=== PATIENT | female | born 1975 | race Caucasian/White ===

== ENCOUNTER 2016-08-29 14:09 | Emergency (ER) | payer OTHER ==
[~2016-08-29] VITALS: Ht 154.9 cm; Wt 64.4 kg
[2016-08-29 14:16] VITALS: TEMP 37; Ht 154.9 cm; Wt 64.4 kg
--- NOTE | 2016-08-29 14:44 | EMERGENCY ROOM VISIT NOTE ---
History Report prepared by Ernesto: Hakan Herman Under the Supervision of: Dr. Jens Pablo M.D. First contact with patient: 14:32 Chief Complaint: VAGINAL BLEEDING Stated Complaint: AND BLEEDING, 7 WEEKS History of Present Illness The patient is a 41 year old female that is 7 weeks who presents to the Emergency Room with complaints of scant vaginal bleeding that started this morning. She has not been saturating pads. The patient also complains of some abdominal cramping. This is the patient's first , and she has never miscarried or aborted. Her LNMP was on 07/08. The patient has not had a confirmatory ultrasound yet. 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 The patient has started taking vitamins. She is currently on Amoxicillin for a sinus infection. The patient still has her appendix and gallbladder. She has not had any abdominal surgeries. Source of History: patient Onset: this morning Position: other (vaginal) Symptom Intensity: scant Quality: other (vaginal bleeding) Associated Symptoms: + abdominal pain Review of Systems See HPI for pertinent positives & negatives. A total of 10 systems reviewed and were otherwise negative. Past Medical & Surgical Medical Problems: (1) No known health problems Family History Cancer Diabetes mellitus Heart disease Social History Smoking Status: Never Smoker Occupation Status: employed Current/Historical Medications Scheduled Amoxicillin (Amoxil), 1 CAP PO BID Multivit/Min/Iron/Fol Ac/Pren ( Vitamin), 1 TAB PO DAILY Physical Exam Vital Signs Date Time Temp Pulse Resp B/P Pulse Ox O2 Delivery O2 Flow Rate FiO2 08/29/16 17:17 82 18 139/83 98 08/29/16 16:55 91 08/29/16 16:03 88 18 123/73 99 Room Air 08/29/16 14:16 37.0 101 18 128/78 99 Room Air Physical Exam GENERAL: Patient is a healthy-appearing well-nourished HEAD: Normocephalic atraumatic EYES: Ocular movements intact pupils equal and react to light OROPHARYNX mucous membranes are moist no exudates present no erythema or edema present NECK: Supple no nuchal rigidity CHEST: Good equal expansion LUNGS: Clear and equal to auscultation CARDIAC: Normal S1 and S2 ABDOMEN: Soft nontender no guarding BACK: No CVA tenderness EXTREMITIES: No pain upon palpation normal muscle strength in all groups no clubbing cyanosis or edema NEURO: Patient is following commands is answering questions appropriately. Alert and oriented x3 Cranial Nerves 2-12 grossly intact Medical Decision & Procedures ER Provider Diagnostic Interpretation: US results as stated below per my review and radiologist interpretation: <14 WKS SINGLE CLINICAL HISTORY: , vaginal bleeding. COMPARISON STUDY: No previous studies for comparison. FINDINGS: A single alive intrauterine gestation was visualized. The crown-rump rump length measured 19 mm corresponding to an estimated postmenstrual age of 8 weeks and 3 days. The heart rate is 175. There is a tiny subchorionic hematoma. A normal-appearing yolk sac was visualized. Several uterine fibroids are visualized. The right ovary was nonvisualized. The left ovary contained a 19 mm cyst, likely representing a corpus luteum. IMPRESSION: 1. Single alive intrauterine gestation. The estimated postmenstrual age is 8 weeks and 3 days 2. Tiny subchorionic hematoma 3. Suspected uterine fibroids Electronically signed by: Aids Avitia M.D. 08/29/2016 4:54 PM Dictated Date/Time: 08/29/2016 4:52 PM Laboratory Results 08/29/16 14:56 Red Blood Count 4.18, Mean Corpuscular Volume 88.0, Mean Corpuscular Hemoglobin 30.9, Mean Corpuscular Hemoglobin Concent 35.1, Mean Platelet Volume 8.9, Neutrophils (%) (Auto) 77.4, Lymphocytes (%) (Auto) 15.3, Monocytes (%) (Auto) 6.3, Eosinophils (%) (Auto) 0.4, Basophils (%) (Auto) 0.2, Neutrophils # (Auto) 8.79, Lymphocytes # (Auto) 1.73, Monocytes # (Auto) 0.71, Eosinophils # (Auto) 0.04, Basophils # (Auto) 0.02 08/29/16 14:56 Test 08/29/16 14:56 08/29/16 16:50 White Blood Count 11.33 K/uL (4.8-10.8) Red Blood Count 4.18 M/uL (4.2-5.4) Hemoglobin 12.9 g/dL (12.0-16.0) Hematocrit 36.8 % (37-47) Mean Corpuscular Volume 88.0 fL (80-100) Mean Corpuscular Hemoglobin 30.9 pg (25-34) Mean Corpuscular Hemoglobin Concent 35.1 g/dl (32-36) Platelet Count 295 K/uL (130-400) Mean Platelet Volume 8.9 fL (7.4-10.4) Neutrophils (%) (Auto) 77.4 % Lymphocytes (%) (Auto) 15.3 % Monocytes (%) (Auto) 6.3 % Eosinophils (%) (Auto) 0.4 % Basophils (%) (Auto) 0.2 % Neutrophils # (Auto) 8.79 K/uL (1.4-6.5) Lymphocytes # (Auto) 1.73 K/uL (1.2-3.4) Monocytes # (Auto) 0.71 K/uL (0.11-0.59) Eosinophils # (Auto) 0.04 K/uL (0-0.5) Basophils # (Auto) 0.02 K/uL (0-0.2) RDW Standard Deviation 39.7 fL (36.4-46.3) RDW Coefficient of Variation 12.3 % (11.5-14.5) Immature Granulocyte % (Auto) 0.4 % Immature Granulocyte # (Auto) 0.04 K/uL (0.00-0.02) Prothrombin Time 10.0 SECONDS (9.0-12.0) Prothromb Time International Ratio 0.9 (0.9-1.1) Activated Partial Thromboplast Time 25.3 SECONDS (21.0-31.0) Partial Thromboplastin Ratio 1.0 Anion Gap 11.0 mmol/L (3-11) Est Creatinine Clear Calc Drug Dose 94.9 ml/min Estimated GFR () 126.5 Estimated GFR (Non- 109.2 BUN/Creatinine Ratio 12.7 (10-20) Calcium Level 8.5 mg/dl (8.5-10.1) Total Bilirubin 0.2 mg/dl (0.2-1) Aspartate Amino Transf (AST/SGOT) 12 U/L (15-37) Alanine Aminotransferase (ALT/SGPT) 25 U/L (12-78) Alkaline Phosphatase 46 U/L (45-117) Total Protein 7.4 gm/dl (6.4-8.2) Albumin 3.5 gm/dl (3.4-5.0) Globulin 3.9 gm/dl (2.5-4.0) Albumin/Globulin Ratio 0.9 (0.9-2) Human Chorionic Gonadotropin, Quant [id number] mIU/mL Urine Color YELLOW Urine Appearance CLEAR (CLEAR) Urine pH 7.0 (4.5-7.5) Urine Specific [place] 1.013 (1.000-1.030) Urine Protein NEG (NEG) Urine Glucose (UA) NEG (NEG) Urine Ketones NEG (NEG) Urine Occult Blood 2+ (NEG) Urine Nitrite NEG (NEG) Urine Bilirubin NEG (NEG) Urine Urobilinogen NEG (NEG) Urine Leukocyte Esterase NEG (NEG) Urine WBC (Auto) 0 /hpf (0-5) Urine RBC (Auto) 0-4 /hpf (0-4) Urine Hyaline Casts (Auto) 1-5 /lpf (0-5) Urine Epithelial Cells (Auto) 10-20 /lpf (0-5) Urine Bacteria (Auto) NEG (NEG) Urine Yeast (Auto) (NONE PRSENT) Urine Test POS (NEG) Labs reviewed by ED physician. ED Course 1437: Past medical records reviewed. The patient was evaluated in room B8. A complete history and physical examination was performed. 1543: Checked on the patient. She is doing well. 1705: Reassessed the patient.. I discussed results and treatment plan with the patient. She verbalizes agreement and understanding. The patient is ready for discharge. Medical Decision Differential diagnosis: Etiologies such as ectopic , dysfunction uterine bleeding, bleeding dyscrasia, trauma, infection, as well as others were entertained. This is a 41-year-old female who presents emergency department complaining of vaginal bleeding. Patient reports the bleeding has not been having however she has been having spotting. She believes that she is 7 weeks and this is her first . She has a benign abdominal examination. Serial abdominal examinations were performed on the patient in the emergency department and at no time did she exhibit abdominal tenderness or surgical abdomen. The patient's beta hCG level is high at 160,000. Her ultrasound appears consistent with a intrauterine gestation. The patient then had a repeat abdominal examination which did not show again any abdominal tenderness. The patient also has a very small subchorionic hemorrhage. I do believe based on the patient's laboratory work I will note that she is blood type positive that she can be safely discharged home. I did recommend bed rest while the patient was expressing vaginal bleeding. She does have a follow-up examination with OB on Monday and is taking vitamins. Patient was in agreement with the treatment plan. Impression Primary Impression: 8 weeks gestation of Additional Impression: Subchorionic hematoma in first trimester Scribe Attestation The scribe's documentation has been prepared under my direction and personally reviewed by me in its entirety. I confirm that the note above accurately reflects all work, treatment, procedures, and medical decision making performed by me. Departure Information Dispostion Home / Self-Care Referrals No Doctor, Assigned (PCP) Forms HOME CARE DOCUMENTATION FORM, IMPORTANT VISIT INFORMATION, WORK / SCHOOL INSTRUCTIONS Patient Instructions Bleeding Early Preg, My [facility], Preg 1st Trimester Additional Instructions Bed rest until follow up with OB Follow up on monday You have been examined and treated today on an emergency basis only. This is not a substitute for, or an effort to provide, complete comprehensive medical care. It is impossible to recognize and treat all injuries or illnesses in a single emergency department visit. It is therefore important that you follow up closely with your PCP. Call as soon as possible for an appointment. Thank you for your time and consideration. I look forward to speaking with you again soon. Please don't hesitate to call us if you have any questions. Problem Qualifiers
[2016-08-29] MEDS ORDERED: PRENTAB26 PO (14:49)
[2016-08-29] MEDS ORDERED: AMOX500C3 PO (14:49)
[2016-08-29 15:10] LABS: BASO % 0.2 %; BASO ABS # 0.02 K/uL (0-0.2); COMPLETE YES; EOS % 0.4 %; HEMATOCRIT 36.8 % (37-47); IG% 0.4 %; LYMPH % 15.3 %; LYMPH ABS # 1.73 K/uL (1.2-3.4); MEAN CORPUSCULAR HEMOGLOBIN 30.9 pg (25-34); MEAN CORPUSCULAR HGB CONC 35.1 g/dl (32-36); MEAN PLATELET VOLUME 8.9 fL (7.4-10.4); MONO % 6.3 %; NEUT % 77.4 %; PLATELET COUNT 295 K/uL (130-400); RED BLOOD COUNT 4.18 M/uL (4.2-5.4); WHITE BLOOD COUNT 11.33 K/uL (4.8-10.8)
[2016-08-29 15:15] LABS: INR 0.9 (0.9-1.1)
[2016-08-29 15:31] LABS: BUN/CREATININE RATIO 12.7 (10-20); CALCIUM 8.5 mg/dl (8.5-10.1); CREATININE 0.67 mg/dl (0.60-1.20); POTASSIUM 3.3 mmol/L (3.5-5.1)
[2016-08-29 15:33] LABS: ALB/GLOB RATIO 0.9 (0.9-2)
--- NOTE | 2016-08-29 16:55 | DIAGNOSTIC IMAGING REPORT ---
<14 WKS SINGLE CLINICAL HISTORY: , vaginal bleeding. COMPARISON STUDY: No previous studies for comparison. FINDINGS: A single alive intrauterine gestation was visualized. The crown-rump rump length measured 19 mm corresponding to an estimated postmenstrual age of 8 weeks and 3 days. The heart rate is 175. There is a tiny subchorionic hematoma. A normal-appearing yolk sac was visualized. Several uterine fibroids are visualized. The right ovary was nonvisualized. The left ovary contained a 19 mm cyst, likely representing a corpus luteum. IMPRESSION: 1. Single alive intrauterine gestation. The estimated postmenstrual age is 8 weeks and 3 days 2. Tiny subchorionic hematoma 3. Suspected uterine fibroids Electronically signed by: Adis Avitia M.D. 08/29/2016 4:54 PM Dictated Date/Time: 08/29/2016 4:52 PM
[2016-08-29 17:12] LABS: URINE APPEARANCE CLEAR (CLEAR); URINE BILIRUBIN NEG (NEG); URINE COLOR YELLOW; URINE NITRITE NEG (NEG); URINE SPECIFIC GRAVITY 1.013 (1.000-1.030); UROBILINOGEN NEG (NEG)
[2016-08-29 17:15] LABS: MANUAL MICROSCOPIC REQUIRED? NO; REVIEW REQ? YES
[2016-08-29 17:17] VITALS: BP 139/83; PULSE 82; O2SAT 98
== END 2016-08-29 17:19 | disposition home or self-care (01) ==
LOC: C.EDB 14:11
DX: O20.8 Other hemorrhage in early pregnancy (principal); Z3A.08 8 weeks gestation of pregnancy

== ENCOUNTER → 2016-08-31 | Outpatient (CLI) | payer OTHER ==
[~2016-08-31] MED LIST: AMOX500C3 PO; PRENTAB26 PO
[2016-08-31 12:22] LABS: URINE APPEARANCE CLEAR (CLEAR); URINE BILIRUBIN NEG (NEG); URINE COLOR YELLOW; URINE NITRITE NEG (NEG); URINE SPECIFIC GRAVITY 1.022 (1.000-1.030); UROBILINOGEN NEG (NEG)
[2016-08-31 12:28] LABS: MANUAL MICROSCOPIC REQUIRED? NO; REVIEW REQ? YES
[2016-08-31 12:51] LABS: URINE MUCUS PRESENT (NONE PRSENT)
== END | disposition home or self-care (01) ==
LOC: C.LABSPEC 11:36
PROVIDERS: ATTEND Obstetrics & Gynecology
DX: O09.519 Supervision of elderly primigravida, unspecified trimester (principal)

== ENCOUNTER → 2016-09-06 | Outpatient (CLI) | payer OTHER | END | disposition home or self-care (01) | LOC: C.PAPS 08:21 | PROVIDERS: ATTEND Obstetrics & Gynecology | DX: Z12.4 Encounter for screening for malignant neoplasm of cervix (principal) ==

== ENCOUNTER → 2016-09-06 | Outpatient (CLI) | payer OTHER ==
[2016-09-06 10:13] LABS: BASO % 0.2 %; BASO ABS # 0.02 K/uL (0-0.2); COMPLETE YES; EOS % 0.3 %; HEMATOCRIT 35.8 % (37-47); IG% 0.3 %; LYMPH % 12.4 %; LYMPH ABS # 1.29 K/uL (1.2-3.4); MEAN CELL VOLUME 87.7 fL (80-100); MEAN CORPUSCULAR HEMOGLOBIN 30.9 pg (25-34); MEAN CORPUSCULAR HGB CONC 35.2 g/dl (32-36); MEAN PLATELET VOLUME 9.3 fL (7.4-10.4); MONO % 6.9 %; NEUT % 79.9 %; PLATELET COUNT 377 K/uL (130-400); RED BLOOD COUNT 4.08 M/uL (4.2-5.4); WHITE BLOOD COUNT 10.41 K/uL (4.8-10.8)
== END | disposition home or self-care (01) ==
LOC: C.LAB1850 09:11
PROVIDERS: ATTEND Obstetrics & Gynecology
DX: O09.519 Supervision of elderly primigravida, unspecified trimester (principal)

== ENCOUNTER → 2016-09-06 | Outpatient (CLI) | payer OTHER ==
[2016-09-09 00:16] LABS: CHLAMYDIA TRACH RNA*** NOT DETECTED (NOT DETECTED); GC (NEIS GONORRHOEAE)RNA** NOT DETECTED (NOT DETECTED)
== END | disposition home or self-care (01) ==
LOC: C.LABSPEC 17:40
PROVIDERS: ATTEND Obstetrics & Gynecology
DX: O09.519 Supervision of elderly primigravida, unspecified trimester (principal)

== ENCOUNTER → 2016-10-26 | Outpatient (CLI) | payer OTHER ==
[2016-10-27 09:10] LABS: GTGD 50 Grams
== END | disposition home or self-care (01) ==
LOC: C.LAB1850 16:37
PROVIDERS: ATTEND Obstetrics & Gynecology
DX: O09.519 Supervision of elderly primigravida, unspecified trimester (principal); Z3A.00 Weeks of gestation of pregnancy not specified

== ENCOUNTER → 2017-01-18 | Outpatient (CLI) | payer BC ==
[2017-01-18 16:35] LABS: HEMATOCRIT 35.5 % (37-47)
[2017-01-18 16:43] LABS: URINE APPEARANCE CLEAR (CLEAR); URINE BILIRUBIN NEG (NEG); URINE COLOR YELLOW; URINE EPITHELIAL CELL AUTO 20-30 /lpf (0-5); URINE NITRITE NEG (NEG); URINE SPECIFIC GRAVITY 1.033 (1.000-1.030); UROBILINOGEN NEG (NEG)
[2017-01-18 16:48] LABS: MANUAL MICROSCOPIC REQUIRED? NO; REVIEW REQ? YES
[2017-01-18 17:02] LABS: URINE MUCUS PRESENT (NONE PRSENT)
[2017-01-18 17:19] LABS: GTGD 50 Grams
== END | disposition home or self-care (01) ==
LOC: C.LAB1850 15:25
PROVIDERS: ATTEND Obstetrics & Gynecology
DX: O09.512 Supervision of elderly primigravida, second trimester (principal); Z3A.00 Weeks of gestation of pregnancy not specified

== ENCOUNTER → 2017-03-13 | Outpatient (CLI) | payer BC | END | disposition home or self-care (01) | LOC: C.LABSPEC 14:02 | PROVIDERS: ATTEND Obstetrics & Gynecology | DX: O09.513 Supervision of elderly primigravida, third trimester (principal) ==

== ENCOUNTER 2017-04-06 07:24 | Inpatient (IN) | payer BC ==
[~2017-04-06] VITALS: Ht 154.9 cm; Wt 68.2 kg
[2017-04-06] MEDS ORDERED: LACTATED RINGER'S 1000ML 1,000 ML IV PRN (08:37)
[2017-04-06] MEDS ORDERED: LACTATED RINGER'S 1000ML 500 ML IV PRN ×2 (08:37→10:35)
[2017-04-06] MEDS ORDERED: LACTATED RINGER'S 1000ML 1,000 ML IV SCH (08:37)
[2017-04-06] MEDS ORDERED: OXYTOCIN 30 UNITS/500ML NSS IV PRN ×2 (08:45→19:00)
[2017-04-06] MEDS ORDERED: PENICILLIN G POTASSIUM IV 6 MU in DEXTROSE 5% 250ML 250 ML IV SCH (09:00)
[2017-04-06 09:38] LABS: HEMATOCRIT 37.2 % (37-47); MEAN CELL VOLUME 91.6 fL (80-100); MEAN CORPUSCULAR HEMOGLOBIN 30.8 pg (25-34); MEAN CORPUSCULAR HGB CONC 33.6 g/dl (32-36); MEAN PLATELET VOLUME 9.5 fL (7.4-10.4); PLATELET COUNT 276 K/uL (130-400); RED BLOOD COUNT 4.06 M/uL (4.2-5.4); WHITE BLOOD COUNT 15.53 K/uL (4.8-10.8)
[2017-04-06] MEDS ORDERED: FENTANYL 2MCG/ML ROPIV 1.25MG/ML 100ML BAG EPI ONE (10:00)
[2017-04-06] MEDS ORDERED: BUPIVACAINE 0.25% 30 ML VIAL ONE (10:00)
[2017-04-06] MEDS ORDERED: EpHEDrine SULFATE INJ 50 MG/ML AMP ONE (10:00)
[2017-04-06] MEDS ORDERED: FENTANYL CITRATE INJ 50 MCG/1 ML 2 ML VIAL ONE (10:00)
[2017-04-06] MEDS ORDERED: NALOXONE HCL INJ 0.4 MG/1 ML VIAL/CARP IV PRN (10:45)
[2017-04-06] MEDS ORDERED: EpHEDrine SULFATE INJ 50 MG/ML AMP IV PRN (10:45)
[2017-04-06] MEDS ORDERED: FENTANYL 2MCG/ML ROPIV 1.25MG/ML 100ML BAG EPI PRN (10:45)
[2017-04-06 11:07] VITALS: Ht 154.9 cm; Wt 68.2 kg
[2017-04-06] MEDS: PENICILLIN G POTASSIUM IV 3 MU in DEXTROSE 5% 100ML 100 ML IV PRN ×2 (13:41→17:32)
[2017-04-06] MEDS ORDERED: DIPHTHERIA/TETANUS/PERTUSSIS 0.5 ML SYR/VIAL IM. ONE (19:00)
[2017-04-06] MEDS ORDERED: LANOLIN OINT EXT PRN ×2 (19:00)
[2017-04-06] MEDS ORDERED: BENZOCAINE 20% AER SPR 82.5 GM CAN EXT PRN (19:00)
[2017-04-06] MEDS ORDERED: SUPERCREAM 0.870 % 15GM JAR EXT PRN (19:00)
[2017-04-06] MEDS ORDERED: ACETAMINOPHEN/CODEINE 300/30MG TAB PO PRN ×2 (19:00)
[2017-04-06] MEDS ORDERED: HYDROCORTISONE ACETATE 25 MG SUPP PR PRN (19:00)
--- NOTE | 2017-04-06 19:08 | Anesthesia Procedure Note ---
Anesthesia Epidural Removal Nt Date & Time Apr 06, 2017 at 19:07 Notes Mental Status: alert / awake / arousable, participated in evaluation Nausea / Vomiting: adequately controlled Pain: adequately controlled Airway Patency, RR, SpO2: stable & adequate BP & HR: stable & adequate Hydration State: stable & adequate Neuraxial Anesthesia: was administered Anesthetic Complications: no major complications apparent, pt satisfied with anesthetic care Epidural: removed without complications, with tip intact
[2017-04-06] MEDS: IBUPROFEN 600 MG TAB PO PRN (19:36)
[2017-04-06 21:10] VITALS: BP 113/76; PULSE 104; PULSE 115; TEMP 36.4; O2SAT 97
[2017-04-06] MEDS: DOCUSATE SODIUM 100 MG CAP PO SCH (22:06)
[2017-04-06 23:15] VITALS: BP 123/78; PULSE 112; TEMP 36.5; O2SAT 98
--- NOTE | 2017-04-07 00:43 | DELIVERY SUMMARY ---
DATE OF OPERATION: 04/06/2017 FINDINGS: Viable female with Apgars of 5 and 8 delivering over a midline second degree laceration with bilateral second degree periurethral tear. Cord gases and cord blood samples were obtained. Placenta delivered spontaneously. Laceration was repaired with 4-0 and 2-0 Vicryl. Estimated blood loss 300 mL. LABOR NOTE: The patient is a 42-year-old 1, para 0 with an EDC of 10 April at 39+ weeks of gestational age, who was admitted with spontaneous rupture of membranes. The patient states membranes ruptured approximately 0700 hours on day of delivery. She described the fluid was clear with no real contraction. The patient has been followed for advanced maternal age during this . She had a first trimester Cell-Free DNA screening, which was negative. She was followed per protocol with testing, which was reassuring. echocardiogram and growth scans were within normal limits. LABORATORY DATA: For the , show blood type of A positive, antibody negative, rubella immune, hepatitis B negative. She had a negative Cell-Free DNA, normal 1-hour Glucola x2 and a positive third trimester beta strep culture. Upon admission, the patient was 3 cm dilated, 90% effaced, -2 station, and grossly ruptured. heart rate tracing was category 1. With a positive GBS status, she received penicillin 6 million unit loading dose, and 3 million units every 4 hours until delivery. Pitocin was initiated per induction protocol because of the ruptured membranes and positive GBS. The patient began to contract in a regular fashion. Anesthesia was consulted and an epidural was placed for pain control. The patient progressed to 5 cm dilated, 100%. There was a forebag which was ruptured of clear fluid. Over the next 4 hours, the patient progressed to full dilatation and began her second stage. With her first push, she had a bradycardic episode down to the 80s which required positional change and oxygen. The baby was allowed to recover and she began her second stage. The patient pushed for approximately an hour and a half delivering a viable female infant with description as above. Cord was clamped and cut and the baby was taken over to the resuscitation stand for evaluation. Cord gases, and cord blood samples were obtained. Placenta delivered spontaneously. Inspection of the perineum showed a midline second degree laceration with bilateral second degree periurethral tears. Periurethral tears were closed with running 4-0 Vicryl stitches. The midline laceration was closed with 4-0 and 2-0 Vicryl in a routine fashion. Estimated blood loss 300 mL. Sponge and needle count was correct. I attest to the content of the Intraoperative Record and any orders documented therein. Any exceptions are noted below. MTDD
[2017-04-07] MEDS: IBUPROFEN 600 MG TAB PO PRN ×5 (02:18→23:46)
[2017-04-07 03:05] VITALS: BP 106/67; PULSE 89; TEMP 36.6; O2SAT 99
--- NOTE | 2017-04-07 07:13 | Progress Note ---
Subjective Apr 07, 2017. Subjective conversation w/ patient, physical exam, chart review Ambulation: ambulating normally Voiding: no voiding problems Passing Gas: Yes Diet Tolerance: Regular Diet Lochia: Moderate Feeding Type: Breast Feeding Pain: CONTROLLED Review of Systems Respiratory: No shortness of breath Cardiac: No chest pain Abdomen: No nausea, No vomiting Female : No dysuria Objective Vital Signs Date Time Temp Pulse Resp B/P (MAP) Pulse Ox O2 Delivery O2 Flow Rate FiO2 04/07/17 03:05 36.6 89 18 106/67 (80) 99 Room Air 04/06/17 23:15 36.5 112 18 123/78 (93) 98 Room Air 04/06/17 23:15 Room Air 04/06/17 21:10 36.4 115 18 113/76 (88) 97 Room Air 104 04/06/17 21:10 Room Air Physical Exam General Appearance: WELL-APPEARING, WD/WN, NO APPARENT DISTRESS Respiratory/Chest: lungs clear, normal breath sounds, no respiratory distress Cardiovascular: regular rate, rhythm, no gallop Abdomen: normal bowel sounds, soft Fundus: Firm, Non-Tender, Relation to Umbilicus (1 BELOW u) Extremities: no calf tenderness Laboratory Results Last 24 Hours Test 04/06/17 09:19 04/07/17 04:44 White Blood Count 15.53 K/uL Red Blood Count 4.06 M/uL Hemoglobin 12.5 g/dL Hematocrit 37.2 % Mean Corpuscular Volume 91.6 fL Mean Corpuscular Hemoglobin 30.8 pg Mean Corpuscular Hemoglobin Concent 33.6 g/dl RDW Standard Deviation 43.8 fL RDW Coefficient of Variation 13.2 % Platelet Count 276 K/uL Mean Platelet Volume 9.5 fL Assessment and Plan Post- Day#: 1 Continue Routine Care: - Vital Signs reviewed and WNL. - Hgb Pending. - Blood Type: A+, GBS+, Rubella Immune. - Pt is doing well clinically. - Encourage Ambulation, Monitor and Control pain with Motrin PRN, Resume regular diet, Monitor Lochia - Encourage Breast Feeding. - Continue routine post care. ALEXSANDRA CORDOVA PGY1 FM RESIDENT Resident Physician Supervision Note: I interviewed and examined the patient. Discussed with Dr. Cordova and agree with findings and plan as documented in the note. Any exceptions or clarifications are listed here: [None] Documented By: Declan Pat Resident Tracking Resident Involvement: Resident Care Provided Care Provided: OB Delivery
[2017-04-07] MEDS: PRENATAL VITAMIN TAB PO SCH (07:36)
[2017-04-07] MEDS: FERROUS SULFATE 325 MG TAB PO SCH (07:36)
[2017-04-07] MEDS: DOCUSATE SODIUM 100 MG CAP PO SCH ×2 (07:36→20:01)
[2017-04-07 08:00] VITALS: BP 109/70; PULSE 106; TEMP 36.7
[2017-04-07 08:22] LABS: HEMATOCRIT 27.5 % (37-47)
[2017-04-07] MEDS: ACETAMINOPHEN 325 MG TAB PO PRN ×3 (09:49→23:46)
--- NOTE | 2017-04-07 10:02 | Discharge Instructions ---
Discharge Instructions Date of Service Apr 07, 2017. Admission Reason for Admission: Labor Check Discharge Discharge Diagnosis / Problem: DELIVERY VAGINAL Discharge Goals Goal(s): Routine recovery after delivery Medications Continue Dispensed Medications: supercream, dermaplast, tucks, lansinoh Activity Recommendations Activity Limitations: per Instructions/Follow-up section . Instructions / Follow-Up Instructions / Follow-Up ACTIVITY RECOMMENDATIONS: * Gradual return to full activity over the next 2-3 weeks. * No lifting - nothing heavier than baby over the next 2-3 weeks. * Do not engage in vigorous exercise, sexual activity or sports until cleared by your physician. * Do not drive or operate any motorized equipment until cleared by your physician. * You may shower/bathe daily. MEDICATIONS: For discomfort or pain, you may use Acetaminophen (Tylenol), Ibuprofen (Advil), or Naproxen (Aleve) following the package directions. For constipation you may use Colace following the package directions. BREAST CARE: If you are not breast feeding: * Wear a supportive bra 24 hours a day for one to two weeks. * Avoid stimulating your breasts and nipples as much as possible during the first few weeks after delivery. * When taking a shower, have the warm water hit your back, not breasts. * When your breasts feel full, apply ice packs. Usually three to four times a day helps ease the discomfort. * Take a mild pain medication (Tylenol / Motrin) when you are uncomfortable. If breast feeding: * Use breast milk to lubricate nipples. Lansinoh cream may be used for sore nipples. You do not need to remove cream prior to breast feeding. If using a different brand of cream, check the label for directions regarding removal of cream prior to nursing. * Wear a supportive bra. * If having problems with breasts or breast feeding, call a production support consultant or your health care provider. EPISIOTOMY CARE: After delivery, if you have an episiotomy (stitches), the following steps will ease discomfort and aid healing. * For the first 24 hours after delivery, place ice packs next to your episiotomy to help reduce swelling. * After the first 24 hour-period, sitz baths, either portable or in the tub, are suggested. A shower with a shower arm sprayed over the episiotomy may be comforting. * Mary care should be done after each voiding and bowel movement. Squirt warm water from a plastic bottle over the perineum (region of the body between the anus and urinary opening) and pat dry. * Use Dermoplast to ease discomfort. Shake container. [place] directly over the episiotomy. Place a Tucks on a clean sanitary pad next to your episiotomy. SPECIAL CARE INSTRUCTIONS: When you are discharged from the hospital, it is important for you to follow the instructions listed below: * During the first week at home, you should be able to care for yourself and your baby. In addition, the usual light household activities are encouraged. * Limit your activities to the way you feel. Do not try to clean the house or move furniture. Be sensible. * If you actively engage in sports and have done so up until the time of your delivery, you may resume these activities as soon as you feel able. This may take up to one month or even longer. Use good judgment. * Continue to take your vitamins for at least six weeks after the of your baby. * Your diet need not be limited unless you were on a special diet before your delivery. Breast-feeding mothers need around 2500 calories per day and at least 64-80 ounces of fluid per day (8 to 10 glasses). * You should eat foods from the four major food groups. Crash diets or fad diets are to be avoided. Eating lean meats, fresh fruits and vegetables, low-fat dairy products, high fiber foods and a regular exercise program, will help you get back to your pre- weight without putting your health at risk. * Constipation is sometimes a problem after delivery. Take a mild laxative as needed. If breast feeding, Milk of Magnesia is acceptable to use. You may use a suppository or Fleets enema if no episiotomy. * A daily shower or tub bath is suggested. Be sure to thoroughly and gently dry the perineum. * A bloody vaginal discharge will usually continue until around four weeks post . A small amount of bleeding may continue for as long as six weeks. Vaginal discharge changes from the bright red bleeding after delivery to pink then brownish and finally yellowish-pink before becoming white and disappearing. * Bleeding may increase with activity. Your first period may come in 4-8 weeks. If you are breast feeding, your period may be delayed even longer. * [place] (sex) can begin whenever both you and your partner feel comfortable and do not have any form of genital infection. It is recommended that you wait at least six weeks for internal and external healing to occur. If you have questions, please talk to your health care practitioner. A condom should be used to prevent infection and . * Foreplay, gentle intercourse and lubrication is very important the first several times to prevent pain. A water-based lubricant such as K-Y jelly or Astroglide may be used. * If you have RH negative blood and your baby is RH positive, you will receive RHOGAM by injection prior to discharge. The nurse will give you a card to keep with you that has the date and place that you received RHOGAM after delivery. * During your care, you had a Rubella screen done to check for the presence of rubella antibodies in your blood. If your test was negative, you will receive a Rubella vaccine prior to discharge. This vaccine may cause a fever, soreness at the injection site and flu-like symptoms. If these symptoms persist, notify your health care practitioner. is not advised for one month after a Rubella vaccine. * Verbalizes understanding of car seat law as reviewed with patient nursing. * Car Seat hand-out given and reviewed with patient by nursing. * Shaken baby information reviewed with patient by nursing. Call you doctor if: * Heavy bleeding (saturating several pads an hour) or passing clots the size of your fist. * A fever >101 degrees F (38.3 degrees C) on two occasions four hours apart and /or chills. * Unusual pain in the pelvic or vaginal areas. * "Baby Blues" lasting longer than two weeks. If you have any questions or concerns, call your health care practitioner at . FOLLOW UP VISIT: * Please call the office at to schedule a 6 week examination. It is important you keep this appointment. It is important for you to make arrangements for either yearly or twice yearly check-ups thereafter. Current Hospital Diet Patient's current hospital diet: Regular OB Diet Discharge Diet Recommended Diet: Regular Diet Pending Studies Studies pending at discharge: no Medical Emergencies . Who to Call and When: Medical Emergencies: If at any time you feel your situation is an emergency, please call 911 immediately. . Non-Emergent Contact Non-Emergency issues call your: Primary Care Provider . . "Provider Documentation" section prepared by Nallely Cordova. . VTE Core Measure Inpt VTE Proph given/why not?: Treatment not indicated
[2017-04-07 12:00] VITALS: BP 138/71; PULSE 107; TEMP 36.5
[2017-04-07 16:00] VITALS: BP 126/78; PULSE 92; TEMP 36.6
[2017-04-07 20:00] VITALS: BP 124/78; PULSE 102; TEMP 36.5; O2SAT 98
[2017-04-07] MEDS ORDERED: BISACODYL 5 MG TABEC PO SCH (20:00)
[2017-04-07 23:40] VITALS: BP 114/78; PULSE 107; TEMP 36.8; O2SAT 97
[2017-04-08] MEDS: IBUPROFEN 600 MG TAB PO PRN ×2 (04:41→12:20)
[2017-04-08] MEDS: ACETAMINOPHEN 325 MG TAB PO PRN ×2 (07:29→12:21)
[2017-04-08] MEDS: DOCUSATE SODIUM 100 MG CAP PO SCH (07:29)
[2017-04-08] MEDS: PRENATAL VITAMIN TAB PO SCH (07:29)
[2017-04-08] MEDS: FERROUS SULFATE 325 MG TAB PO SCH (07:29)
[2017-04-08 07:30] VITALS: BP 112/78; PULSE 98; TEMP 36.6
--- NOTE | 2017-04-08 07:57 | Progress Note ---
Subjective Apr 08, 2017. Subjective conversation w/ patient, physical exam, chart review, lab review Ambulation: ambulating normally Voiding: no voiding problems Passing Gas: Yes Diet Tolerance: Regular Diet Lochia: Moderate Feeding Type: Breast Feeding Pain: controlled Review of Systems Respiratory: No shortness of breath Cardiac: No chest pain Abdomen: No nausea, No vomiting Female : No dysuria Objective Vital Signs Date Time Temp Pulse Resp B/P (MAP) Pulse Ox O2 Delivery O2 Flow Rate FiO2 04/07/17 23:40 Room Air 04/07/17 23:40 36.8 107 16 114/78 (90) 97 Room Air 04/07/17 20:00 Room Air 04/07/17 20:00 36.5 102 16 124/78 (93) 98 Room Air 04/07/17 16:00 36.6 92 18 126/78 (94) Room Air 04/07/17 15:45 Room Air 04/07/17 12:00 36.5 107 18 138/71 (93) Room Air 04/07/17 08:00 36.7 106 18 109/70 (83) Room Air Physical Exam General Appearance: WELL-APPEARING, WD/WN, NO APPARENT DISTRESS Respiratory/Chest: lungs clear, normal breath sounds, no respiratory distress Cardiovascular: regular rate, rhythm, no gallop Abdomen: normal bowel sounds, soft Fundus: Firm, Non-Tender, Relation to Umbilicus (1 below U) Extremities: no calf tenderness Assessment and Plan Problem List Medical Problems: (1) 8 weeks gestation of Status: Acute (2) Subchorionic hematoma in first trimester Status: Acute Post- Day#: 2 Continue Routine Care: - Vital Signs reviewed. Very mild tachycardia noted - 107 highest. Pt denies dizziness, palpitations, or excessive bleeding from vagina. Stable. - Blood Type: A+, GBS+, Rubella Immune. (Received 3 doses intrapartum.) - Pt is doing well clinically. - Encourage Ambulation, Monitor and Control pain with Motrin PRN, Resume regular diet, Monitor Lochia - Encourage Breast Feeding. - Pt counselled on discharge instructions. ALEXSANDRA CORDOVA PGY1 FM RESIDENT Resident Physician Supervision Note: I interviewed and examined the patient. Discussed with Dr. Cordova and agree with findings and plan as documented in the note. Any exceptions or clarifications are listed here: [None] Documented By: Rossi Rizvi Resident Tracking Resident Involvement: Resident Care Provided Care Provided: OB Delivery
[2017-04-08 12:20] VITALS: BP_DIAS 78; PULSE 98; TEMP 36.6
== END 2017-04-08 14:35 | disposition home or self-care (01) | DRG 775 ==
LOC: C.OBG 07:24 → C.OPB 07:24 → C.OBG 08:39 → C.OPB 08:39 → C.LD 10:35 → C.OBG 21:10
PROVIDERS: ADMIT Obstetrics & Gynecology; ATTEND Obstetrics & Gynecology
PROC: 10E0XZZ Delivery of Products of Conception, External Approach (ICD-10-PCS; principal; 2017-04-06)
PROC: 0KQM0ZZ Repair Perineum Muscle, Open Approach (ICD-10-PCS; principal; 2017-04-06)
DX: O70.1 Second degree perineal laceration during delivery (principal); O09.513 Supervision of elderly primigravida, third trimester; Z22.330 Carrier of Group B streptococcus; Z37.0 Single live birth; Z3A.39 39 weeks gestation of pregnancy

== ENCOUNTER 2017-04-11 17:49 | Emergency (ER) | payer BC ==
[~2017-04-11] VITALS: Ht 154.9 cm; Wt 73.8 kg
[2017-04-11 17:50] VITALS: TEMP 36.5; Ht 154.9 cm; Wt 73.8 kg
[2017-04-11] MEDS ORDERED: SODIUM CHLORIDE 0.9% 1000ML 1,000 ML IV STA (18:09)
--- NOTE | 2017-04-11 18:37 | EMERGENCY ROOM VISIT NOTE ---
History First contact with patient: 17:57 Chief Complaint: FLANK PAIN Stated Complaint: L KIDNEYPAIN History of Present Illness The patient is a 42 year old female who presents to the Emergency Room with complaints of left flank pain that started yesterday. She states pain is constant, worse with movement, better rest, sharp and achy, radiates around to the left side of the abdomen, 5/10. She denies any associated nausea, vomiting , fevers, chills. She has not tried any medications for the pain. She is 6 days from a single vaginal delivery, she reports that she had a urethral tear during delivery. She states she is still passing blood since delivery, she is unsure if this is coming from her urethra or her vagina, but states that the bleeding overall has decreased and has not gotten worse since starting her pain. She denies any chest pain, shortness of breath, palpitations , dizziness or syncope, cough, diarrhea or constipation. Review of Systems A complete 10 point review of systems was reviewed with the patient with pertinent positives and negatives as per history of present illness. All else were negative. 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 (2) No known health problems (3) Supervision of high-risk of elderly primigravida, third trimester Family History Cancer Diabetes mellitus Heart disease Social History Smoking Status: Never Smoker Occupation Status: employed Current/Historical Medications Scheduled Multivit/Min/Iron/Fol Ac/Pren ( Vitamin), 1 TAB PO DAILY Physical Exam Vital Signs Date Time Temp Pulse Resp B/P (MAP) Pulse Ox O2 Delivery O2 Flow Rate FiO2 04/11/17 21:55 94 18 133/78 97 04/11/17 21:50 94 18 133/78 97 Room Air 04/11/17 19:47 96 18 141/85 98 Room Air 04/11/17 17:50 36.5 98 18 154/89 99 Room Air Physical Exam CONSTITUTIONAL: No acute distress. Well hydrated, well appearing and well nourished. Alert and oriented X 4 with normal affect. HEENT: Normocephalic, atraumatic. Pupils equal, round and reactive to light, EOMI. TMs normal. Pharynx normal. Moist membranes membranes. NECK: Supple, full active range of motion without discomfort. RESPIRATORY: Clear to auscultation bilaterally with no wheezing, crackles, rhonchi or stridor. Equal expansion bilaterally. CARDIOVASCULAR: Regular rate and rhythm with no murmurs, rubs or gallops. Normal peripheral perfusion. No edema. GASTROINTESTINAL: Moderate tenderness in the left flank with palpation over the left lower lateral rib cage. Mild diffuse tenderness of the lower abdomen, no pointed tenderness, rebound or guarding. Soft, nondistended. Bowel sounds present in all quadrants. MUSCULOSKELETAL: Full range of motion of all joints without discomfort. INTEGUMENTARY: No rash or other significant dermatologic conditions noted. NEUROLOGIC: Cranial nerves II-XII grossly intact. No focal neurologic deficits noted. Medical Decision & Procedures ER Provider Diagnostic Interpretation: ABD/PELVIS WITHOUT FOR STONE CT DOSE: 1104.81 mGy.cm HISTORY: Flank pain Flank pain, eval for stone TECHNIQUE: Multiaxial CT images of the abdomen and pelvis were performed without the use of intravenous and oral contrast according to the standard department stone protocol. A dose lowering technique was utilized adhering to the principles of ALARA. COMPARISON STUDY: None. FINDINGS: Lung bases are clear. Liver spleen and pancreas appear unremarkable. The kidneys are considered negative for hydronephrosis. The upper abdominal bowel pattern is nonobstructive. Uterus is enlarged. Endometrium is heterogeneous and thickened with a maximum dimension of 3.5 cm. Bowel pattern is considered nonobstructive. IMPRESSION: 1. No evidence renal calcification or hydronephrosis. 2. Enlarged uterus having a maximum linear dimension of 14 cm with heterogeneous thickening of the endometrium. Possible uterine fibroids 3. Correlation is required with any of the patient's current or recent status is required to determine the significance of this finding as well as a possible retained products of conception or other entity. 4. Nonobstructive bowel pattern. Laboratory Results 04/11/17 18:00 Red Blood Count 3.46, Mean Corpuscular Volume 90.5, Mean Corpuscular Hemoglobin 30.9, Mean Corpuscular Hemoglobin Concent 34.2, Mean Platelet Volume 8.6, Neutrophils (%) (Auto) 70.7, Lymphocytes (%) (Auto) 19.6, Monocytes (%) (Auto) 6.7, Eosinophils (%) (Auto) 1.7, Basophils (%) (Auto) 0.3, Neutrophils # (Auto) 6.66, Lymphocytes # (Auto) 1.84, Monocytes # (Auto) 0.63, Eosinophils # (Auto) 0.16, Basophils # (Auto) 0.03 04/11/17 18:00 Test 04/11/17 18:00 04/11/17 18:18 White Blood Count 9.41 K/uL (4.8-10.8) Red Blood Count 3.46 M/uL (4.2-5.4) Hemoglobin 10.7 g/dL (12.0-16.0) Hematocrit 31.3 % (37-47) Mean Corpuscular Volume 90.5 fL (80-100) Mean Corpuscular Hemoglobin 30.9 pg (25-34) Mean Corpuscular Hemoglobin Concent 34.2 g/dl (32-36) Platelet Count 350 K/uL (130-400) Mean Platelet Volume 8.6 fL (7.4-10.4) Neutrophils (%) (Auto) 70.7 % Lymphocytes (%) (Auto) 19.6 % Monocytes (%) (Auto) 6.7 % Eosinophils (%) (Auto) 1.7 % Basophils (%) (Auto) 0.3 % Neutrophils # (Auto) 6.66 K/uL (1.4-6.5) Lymphocytes # (Auto) 1.84 K/uL (1.2-3.4) Monocytes # (Auto) 0.63 K/uL (0.11-0.59) Eosinophils # (Auto) 0.16 K/uL (0-0.5) Basophils # (Auto) 0.03 K/uL (0-0.2) RDW Standard Deviation 43.0 fL (36.4-46.3) RDW Coefficient of Variation 13.2 % (11.5-14.5) Immature Granulocyte % (Auto) 1.0 % Immature Granulocyte # (Auto) 0.09 K/uL (0.00-0.02) Anion Gap 9.0 mmol/L (3-11) Est Creatinine Clear Calc Drug Dose 92.2 ml/min Estimated GFR () 117.7 Estimated GFR (Non- 101.6 BUN/Creatinine Ratio 18.9 (10-20) Calcium Level 8.9 mg/dl (8.5-10.1) Total Bilirubin 0.2 mg/dl (0.2-1) Direct Bilirubin < 0.1 mg/dl (0-0.2) Aspartate Amino Transf (AST/SGOT) 25 U/L (15-37) Alanine Aminotransferase (ALT/SGPT) 42 U/L (12-78) Alkaline Phosphatase 92 U/L (45-117) Total Protein 7.0 gm/dl (6.4-8.2) Albumin 2.9 gm/dl (3.4-5.0) Lipase 110 U/L (73-393) Urine Color YELLOW Urine Appearance CLEAR (CLEAR) Urine pH 6.5 (4.5-7.5) Urine Specific [place] 1.008 (1.000-1.030) Urine Protein NEG (NEG) Urine Glucose (UA) NEG (NEG) Urine Ketones NEG (NEG) Urine Occult Blood 3+ (NEG) Urine Nitrite NEG (NEG) Urine Bilirubin NEG (NEG) Urine Urobilinogen NEG (NEG) Urine Leukocyte Esterase SMALL (NEG) Urine WBC (Auto) 1-5 /hpf (0-5) Urine RBC (Auto) 10-30 /hpf (0-4) Urine Hyaline Casts (Auto) 0 /lpf (0-5) Urine Epithelial Cells (Auto) 5-10 /lpf (0-5) Urine Bacteria (Auto) NEG (NEG) Medications Administered Medications (Trade) Dose Ordered Sig/Karina Route Start Time Stop Time Status Last Admin Dose Admin Sodium Chloride 1,000 ml @ 999 mls/hr Q1H1M STAT IV 04/11/17 18:09 04/11/17 19:09 DC 04/11/17 18:09 999 MLS/HR Ketorolac Tromethamine (Toradol Inj) 15 mg NOW STAT IV 04/11/17 21:03 04/11/17 21:05 DC 04/11/17 21:46 15 MG Medical Decision CC: Patient presenting with complaint of left flank pain Interpretation of Labs: No leukocytosis, mild anemia, no significant joint abnormalities, normal renal function, normal liver enzymes and lipase, UA negative for proteinuria, no definite UTI. Urine culture pending. Differential Diagnosis: Includes, but not limited to kidney stone, pancreatitis , costochondritis, musculoskeletal strain/sprain, preeclampsia, among others. Medication Reconciliation: I attest that I have personally reviewed the patient' s current medication list. Vital signs review: I reviewed the patient's vital signs and interpret them as follows: T: Afebrile; BP: Hypertensive; HR: Tachycardic; RR: Within normal limits; Pulse Ox: Within normal limits on room air. Blood pressure screening: The patient was found to have an elevated blood pressure was felt to be situational, related to pain. Summary: Patient was evaluated at bedside, history of physical exam performed. Patient is alert and in no acute distress, resting comfortably in the stretcher. Patient has tenderness of the left flank, particularly with palpation over the left upper quadrant and left lower lateral chest wall. Lungs are clear, she denies any shortness of breath or chest pain. She denies any cough. She has diffuse mild tenderness of the lower abdomen, no guarding or rebound tenderness. Orders were placed at bedside for labs, UA, IV fluids, CT abdomen/pelvis to evaluate for ureteral stone. Patient discussed with Dr. Deng, who agrees with my assessment and plan. Labs reviewed as above, unremarkable. UA negative. CT imaging reviewed, no evidence of ureteral stone or pyelonephritis. I do not have clinical concern for retained products of conception based on my exam today. Do not suspect preeclampsia, the patient's labs are unremarkable, no proteinuria , and her blood pressure is improved after pain management. I discussed on the phone with Dr. Hardwick, BOILERMAKER APPRENTICE, she agrees with our workup and does not feel that there is any obstetrical reason for the patient's pain. We will treat this as a musculoskeletal pain, patient given Toradol with good improvement. Patient was instructed to follow closely with her PCP, and to keep all follow- up appointments with OB. She was also given strict return precautions should her symptoms worsen in any way, she verbalized understanding. Patient was discharged home in stable condition and ambulatory. Medication Reconcilliation Current Medication List: was personally reviewed by me Blood Pressure Screening Patient's blood pressure: Elevated blood pressure Blood pressure disposition: Elevated BP felt to be situational Impression Primary Impression: Left flank pain Additional Impression: Musculoskeletal pain Departure Information Dispostion Home / Self-Care Condition GOOD Referrals No Doctor, Assigned (PCP) Patient Instructions ED Flank Pain Uncertain Cause, ED Spasm Muscle, My [facility] Additional Instructions You have been treated in the Emergency Department your left flank and abdominal pain. Laboratory results and imaging studies have ruled out any emergent causes for your abdominal pain which would warrant admission or surgery. For pain control, you can use the following [id number] medicines (if >12 yo): - Regular strength (325mg/tab) Tylenol (acetaminophen) 2 tabs every 4-6 hours as needed. Do not exceed 10 tablets in a 24 hour period. Avoid taking more than 3000 mg of Tylenol per day. This includes any other sources of acetaminophen you may take on a regular basis. - Regular strength (200 mg/tab) Advil (ibuprofen) 3 tabs every 6 hours as needed. Do not exceed a dose of 2400 mg per day. You may apply warm compress or heating pad to the affected area for comfort. Drink plenty of water and stay well hydrated. As with any trip to the Emergency Department, you should follow-up with your Primary Care Provider from today's visit. Keep all scheduled follow-up with your BOILERMAKER APPRENTICE provider. Return to the emergency department if your symptoms persist despite treatment plan outlined above or if the following symptoms occur: Severe worsening pain, fevers/chills, persistent nausea/vomiting, chest pain, shortness of breath, dizziness or passing out, or any other concerns. Work Instructions Return To Work: 2 days Problem Qualifiers
--- NOTE | 2017-04-11 18:45 | DIAGNOSTIC IMAGING REPORT ---
ABD/PELVIS WITHOUT FOR STONE CT DOSE: 1104.81 mGy.cm HISTORY: Flank pain Flank pain, eval for stone TECHNIQUE: Multiaxial CT images of the abdomen and pelvis were performed without the use of intravenous and oral contrast according to the standard department stone protocol. A dose lowering technique was utilized adhering to the principles of ALARA. COMPARISON STUDY: None. FINDINGS: Lung bases are clear. Liver spleen and pancreas appear unremarkable. The kidneys are considered negative for hydronephrosis. The upper abdominal bowel pattern is nonobstructive. Uterus is enlarged. Endometrium is heterogeneous and thickened with a maximum dimension of 3.5 cm. Bowel pattern is considered nonobstructive. IMPRESSION: 1. No evidence renal calcification or hydronephrosis. 2. Enlarged uterus having a maximum linear dimension of 14 cm with heterogeneous thickening of the endometrium. Possible uterine fibroids 3. Correlation is required with any of the patient's current or recent status is required to determine the significance of this finding as well as a possible retained products of conception or other entity. 4. Nonobstructive bowel pattern. The above report was generated using voice recognition software. It may contain grammatical, syntax or spelling errors. Electronically signed by: Can Greenwood M.D. 04/11/2017 6:44 PM Dictated Date/Time: 04/11/2017 6:38 PM
[2017-04-11 18:46] LABS: BASO % 0.3 %; BASO ABS # 0.03 K/uL (0-0.2); COMPLETE YES; EOS % 1.7 %; HEMATOCRIT 31.3 % (37-47); LYMPH % 19.6 %; LYMPH ABS # 1.84 K/uL (1.2-3.4); MEAN CELL VOLUME 90.5 fL (80-100); MEAN CORPUSCULAR HEMOGLOBIN 30.9 pg (25-34); MEAN CORPUSCULAR HGB CONC 34.2 g/dl (32-36); MEAN PLATELET VOLUME 8.6 fL (7.4-10.4); MONO % 6.7 %; NEUT % 70.7 %; PLATELET COUNT 350 K/uL (130-400); RED BLOOD COUNT 3.46 M/uL (4.2-5.4); WHITE BLOOD COUNT 9.41 K/uL (4.8-10.8)
[2017-04-11 19:03] LABS: ALT/SGPT 42 U/L (12-78); AST/SGOT 25 U/L (15-37); BLOOD UREA NITROGEN 14 mg/dl (7-18); BUN/CREATININE RATIO 18.9 (10-20); CALCIUM 8.9 mg/dl (8.5-10.1); CARBON DIOXIDE 24 mmol/L (21-32); CHLORIDE 108 mmol/L (98-107); CREATININE 0.73 mg/dl (0.60-1.20); GLUCOSE 92 mg/dl (70-99); POTASSIUM 3.5 mmol/L (3.5-5.1); SODIUM 141 mmol/L (136-145)
[2017-04-11 19:05] LABS: ALKALINE PHOSPHATASE 92 U/L (45-117)
[2017-04-11 19:13] LABS: URINE APPEARANCE CLEAR (CLEAR); URINE BILIRUBIN NEG (NEG); URINE COLOR YELLOW; URINE NITRITE NEG (NEG); URINE PH 6.5 (4.5-7.5); URINE SPECIFIC GRAVITY 1.008 (1.000-1.030); UROBILINOGEN NEG (NEG)
[2017-04-11 19:29] LABS: MANUAL MICROSCOPIC REQUIRED? NO; REVIEW REQ? NO
[2017-04-11] MEDS ORDERED: KETOROLAC TROMETHAMINE 30 MG/ML VIAL IV STA (21:03)
[2017-04-11 21:55] VITALS: BP 133/78; PULSE 94; O2SAT 97
== END 2017-04-11 21:56 | disposition home or self-care (01) ==
LOC: C.EDB 17:50
DX: R10.9 Unspecified abdominal pain (principal); M79.1 Myalgia; Z83.3 Family history of diabetes mellitus; Z82.49 Family history of ischemic heart disease and other diseases of the circulatory system

== ENCOUNTER → 2017-06-14 | Day surgery (SDC) | payer BC ==
[2017-05-29 08:33] VITALS: Ht 154.9 cm; Wt 69.1 kg
--- NOTE | 2017-05-29 09:25 | HISTORY & PHYSICAL EXAMINATION ---
DATE OF ADMISSION: 06/14/2017 ADMITTING DIAGNOSIS: Desired permanent surgical sterilization. ADMISSION HISTORY: The patient is a 42-year-old 1, para 1, currently , who presents today for laparoscopic tubal ligation. The patient adamantly desires no further childbearing capacity, she understands the reversible forms of contraception available and wishes to proceed. PAST MEDICAL HISTORY: OBSTETRICAL: x1. GYNECOLOGICAL: As above. MEDICAL: None. SURGICAL: None. ALLERGIES: No known drug allergies. SOCIAL HISTORY: No smoking. FAMILY HISTORY: Noncontributory. REVIEW OF SYSTEMS: As per HPI. ADMISSION PHYSICAL EXAMINATION: GENERAL: Shows a pleasant female in no acute distress. VITAL SIGNS: Blood pressure 116/74, height of 5 feet 1 inch, and weight of 152 pounds. HEENT EXAMINATION: Unremarkable. NECK: Supple. LUNGS: Clear. HEART: With a regular rhythm and rate. ABDOMEN: Soft and nontender. PELVIC: Shows normal external genitalia. Vaginal wall pink and rugated. Cervical os multiparous and closed. Bimanual examination shows an anterior mobile uterus. Adnexa show no palpable masses. RECTAL: Confirmatory. EXTREMITIES: Shows no deep calf tenderness. NEUROLOGIC: Grossly intact. IMPRESSION: A 42-year-old G1, P1 for permanent surgical sterilization. PLAN: With general anesthesia, the patient has been advised that she will need to pump and discard her breastmilk for 24 hours after surgery. The risks, benefits and alternatives of the surgery have been discussed. While the benefits will be permanent surgical sterilization, the risks are bleeding, infection, inadvertent injury to internal organs requiring additional surgery and treatment, regret, and failure of the procedure itself. Failure rate quoted at 1%-3%. The patient understands, the permit has been signed and she wishes to proceed.
[2017-05-29 10:11] LABS: HEMATOCRIT 36.1 % (37-47); MEAN CELL VOLUME 90.5 fL (80-100); MEAN CORPUSCULAR HEMOGLOBIN 29.8 pg (25-34); PLATELET COUNT 309 K/uL (130-400); RED BLOOD COUNT 3.99 M/uL (4.2-5.4); WHITE BLOOD COUNT 5.11 K/uL (4.8-10.8)
[~2017-06-14] VITALS: Ht 154.9 cm; Wt 69.1 kg
[~2017-06-14] MED LIST changes: -AMOX500C3 PO; +ATROPINE SULFATE 0.1 MG/ML 5ML SYR IV PRN; +EpHEDrine SULFATE INJ 50 MG/ML AMP IV PRN; +FENTANYL CITRATE INJ 50 MCG/1 ML 2 ML VIAL IV PRN; +LACTATED RINGER'S 1000ML 1,000 ML IV SCH; +ONDANSETRON INJ 2 MG/ML 2 ML VIAL IV PRN
[2017-06-14 11:04] VITALS: BP 118/81; PULSE 65; TEMP 36.6; O2SAT 98
== END | disposition home or self-care (01) ==
LOC: X.SURG 10:46
PROVIDERS: ATTEND Obstetrics & Gynecology
DX: Z30.2 Encounter for sterilization (principal); Z53.8 Procedure and treatment not carried out for other reasons

== ENCOUNTER → 2017-07-20 | Day surgery (SDC) | payer BC ==
[2017-07-07 14:48] VITALS: Ht 154.9 cm; Wt 69.1 kg
--- NOTE | 2017-07-12 07:52 | HISTORY & PHYSICAL EXAMINATION ---
DATE OF ADMISSION: 07/20/2017 ADMITTING DIAGNOSES: Desired permanent surgical sterilization. ADMISSION HISTORY: The patient is a 42-year-old 1, para 1, currently , who presents for laparoscopic tubal ligation. The patient adamantly desires no further childbearing capacity. She understands there are reversible forms of contraception available and wishes to proceed. PAST MEDICAL HISTORY: OB: x1. 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 MEDICAL: None. SURGICAL: None. ALLERGIES: No known drug allergies. SOCIAL HISTORY: No smoking. FAMILY HISTORY: Noncontributory. REVIEW OF SYSTEMS: As per HPI. ADMISSION PHYSICAL EXAMINATION: GENERAL: Shows a pleasant female in no acute distress. VITAL SIGNS: Blood pressure 116/74, a height of 5 feet 1 inches and weight of 152 pounds. HEENT EXAMINATION: Unremarkable. NECK: Supple. LUNGS: Clear. HEART: With a regular rhythm and rate. ABDOMEN: Soft, nontender. PELVIC: Shows normal external genitalia. Vaginal wall is pink and rugated. Cervical os is multiparous and closed. Bimanual examination shows an anterior mobile uterus. Adnexa show no palpable masses. RECTAL: Confirmatory. EXTREMITIES: Shows no deep calf tenderness. NEUROLOGIC: Grossly intact. IMPRESSION: 42-year-old 1, para 1 for permanent surgical sterilization. PLAN: With general anesthesia, the patient has been advised that she will need to pump and discard her breast milk for 24 hours after surgery. Risks, benefits and alternatives to the surgery have been discussed. While the benefits will be permanent surgical sterilization, the risks are bleeding, infection, inadvertent injury to internal organs requiring additional surgery and treatment, regret, and failure of the procedure itself. Failure rate quoted at 1-3%. The patient understands this. Permit has been signed and she wishes to proceed.
[~2017-07-20] VITALS: Ht 154.9 cm; Wt 69.1 kg
[~2017-07-20] MED LIST changes: +DEXAMETHASONE SOD INJ 4 MG/ML VIAL ONE; +FENTANYL CITRATE INJ 50 MCG/1 ML 2 ML VIAL ONE; +GLYCOPYRROLATE INJ 0.2 MG/ML VIAL ONE; +IBUPROFEN 600 MG TAB PO PRN; +KETOROLAC TROMETHAMINE 30 MG/ML VIAL IV. PRN; +LIDOCAINE HCL 2% 2 ML VIAL (20MG/ML) ONE; +MIDAZOLAM HCL 1 MG/ML 2ML VIAL ONE; +NEOSTIGMINE METHYLSULFATE 5 MG/5 ML SYR ONE; +ONDANSETRON INJ 2 MG/ML 2 ML VIAL ONE; +OXYC-57 PO; +OXYCODONE/ACETAMINOPHEN 5-325 TAB PO PRN; +PROPOFOL IV EMULSION 10 MG/ML 20 ML VIAL IV ONE; +SODIUM CHLORIDE 0.9% 1000ML 1,000 ML IV SCH
--- NOTE | 2017-07-20 07:12 | History & Physical Bridge - SC ---
H&P Re-Evaluation Bridge Note: I have examined the patient, reviewed the History & Physical and in the interval since the performance of the History & Physical I have noted the following changes of clinical significance: No changes noted
--- NOTE | 2017-07-20 07:50 | [facility] Post Operative Brief Note ---
Immediate Operative Summary Operative Date Jul 20, 2017. Pre-Operative Diagnosis Desires Sterilization Post-Operative Diagnosis Same Procedure(s) Performed Laparoscopic Tubal Sterilization Surgeon Dr. Pat Urban Redevelopment Specialist Surgeon(s) None Estimated Blood Loss Minimal Findings Normal appearing tubes and ovaries bilaterally. Bilateral fulguration of tubes till resistance met zero Specimens None Drains None Anesthesia General Complication(s) None Disposition Recovery Room / PACU
--- NOTE | 2017-07-20 07:54 | Discharge Instructions-SurgCtr ---
Discharge Instructions Date of Service Jul 20, 2017. Visit Reason for Visit: Encounter For Sterilization Discharge Discharge Diagnosis / Problem: same Discharge Goals Goal(s): Therapeutic intervention Activity Recommendations Activity Limitations: as noted below Anesthesia . Post Anesthesia Instructions: If you have had General Anesthesia or IV Sedation: * Do not drive today. * Resume driving when surgeon permits. * Do not make important decisions or sign legal documents today. * Call surgeon for: 1. Temperature elevations greater than 101 degrees F. 2. Uncontrollable pain. 3. Excessive bleeding. 4. Persistent nausea and vomiting. 5. Medication intolerance (nausea, vomiting or rash). * For nausea and vomiting use only clear liquids such as: tea, soda, bouillon until nausea subsides, then gradually increase diet as tolerated. * If you have any concerns or questions, call your surgeon's office. If physician is unavailable and it is an emergency, call 911 or go to the nearest emergency room. . Instructions / Follow-Up Instructions / Follow-Up ACTIVITY RECOMMENDATIONS: * Rest the first 2-3 days. You should be back to your normal activity levels by day 3. * No heavy lifting for 2 weeks. * No intercourse, tampons or douching for 1-2 weeks. * You may shower the next day. * Do not drive anytime that you are taking narcotic pain medicines. RETURN TO SCHOOL/WORK: * May return to school or work after 2-3 days. DIET: Nausea may occur in the immediate post-operative period. If so, take clear liquids such as tea, bouillon, apple juice until all nausea has subsided, then resume usual diet. MEDICATIONS: Resume previous medications unless instructed otherwise by your surgeon. Ibuprofen 200mg 2-3 tablets every 4-6 hours as needed -- OR -- Aleve 2 tablets every 8-12 hours as needed for post-operative discomfort Medications are over the counter. Tylenol may be used if above medications are contraindicated or not preferred. Medication should be taken with food or milk. Do not take on an empty stomach. SPECIAL CARE INSTRUCTIONS: * Check temperature twice daily for one week. report any elevation over 101 degrees. * You may experience some vagina spotting and/or bleeding. This is normal for 1 -2 weeks and should not be heavier than a normal period. If it is unusual in amount, call your physician. * Post-operative discomfort may consist of a sore throat, a "bloated" feeling and pain in the shoulders. these are normal symptoms, which usually only last for 2-3 days. * Remove band-aids tomorrow and shower. There is no need to replace band-aids unless there is drainage or discomfort. FOLLOW UP VISIT: Call your doctor's office for a post-operative 2 week visit if not already scheduled. Diet Recommendations Home Diet: resume previous diet Procedures Procedures Performed: Laparoscopic Tubal Sterilization Pending Studies Studies pending at discharge: no Medical Emergencies . Who to Call and When: Medical Emergencies: If at any time you feel your situation is an emergency, please call 911 immediately. . Non-Emergent Contact Non-Emergency issues call your: Stenotype Operator Call Non-Emergent contact if: you have a fever, temperature is above 100.5, your pain is not controlled, your pain is worsening, wound has increased drainage, wound has increased redness, wound has increased pain . . "Provider Documentation" section prepared by Declan Pat. . [place] Drug Monitoring Program Search Results: patient reviewed within database, no issues identified
--- NOTE | 2017-07-20 08:34 | OPERATIVE REPORT ---
DATE OF OPERATION: 07/20/2017 PREOPERATIVE DIAGNOSES: Desired permanent surgical sterilization. POSTOPERATIVE DIAGNOSIS: Same. PROCEDURE PERFORMED: Laparoscopic tubal ligation. SURGEON: Dr. Pat. ANESTHESIA: General. FINDINGS: Normal appearing uterus, tubes, and ovaries bilaterally. Bilateral fulguration of fallopian tube in 3 contiguous curry until resistance met 0. OPERATION AND FINDINGS: PROCEDURE IN DETAIL: The patient was taken to the operating room and after general anesthesia, was placed in dorsolithotomy position and draped and prepped in usual fashion. Bladder was drained of any residual urine. Single tooth tenaculum was used to grasp the anterior lip of the cervix. [place] cannula was inserted into the cervical os and fastened to the tenaculum. Small subumbilical incision was made and Veress needle was introduced into the pelvic cavity which was then insufflated with 3 liters of CO2. Veress needle was removed and then a sharp trocar was used to introduce the laparoscope. Pelvic organs were visualized and then under direct laparoscopic guidance, a 5 mm suprapubic trocar was placed. Pelvic organs were visualized with description as above. Bipolar cautery instrument was inserted through the suprapubic trocar. The fallopian tubes were then cauterized in 3 contiguous curry bilaterally until resistance met 0. Hemostasis was present. The CO2 was allowed to escape from the pelvic cavity. The trocars were removed under direct laparoscopic guidance. Skin incisions were closed with 5-0 Vicryl subcuticular sutures. Sterile dressings applied. [place] cannula and tenaculum removed from the cervix. The patient taken out of dorsal lithotomy to recovery room in satisfactory condition. I attest to the content of the Intraoperative Record and any orders documented therein. Any exception s are noted below.
[2017-07-20 08:42] VITALS: TEMP 36.2
[2017-07-20 09:09] VITALS: BP 122/77; PULSE 57; O2SAT 100
--- NOTE | 2017-07-20 09:18 | Anesthesia Progress Nt - [facility] ---
Anesthesia Post Op Note Date & Time Jul 20, 2017 at 09:18 Vital Signs Pain Intensity: 1 Vital Signs Past 12 Hours Date Time Temp Pulse Resp B/P (MAP) Pulse Ox O2 Delivery O2 Flow Rate FiO2 07/20/17 09:09 57 20 122/77 (92) 100 Room Air 07/20/17 08:42 36.2 42 18 108/67 (81) 99 Room Air 07/20/17 08:36 50 15 99 07/20/17 08:36 52 15 07/20/17 08:35 117/66 07/20/17 08:33 36.7 50 12 101/59 97 Room Air 07/20/17 08:31 47 19 99 07/20/17 08:31 52 19 07/20/17 08:30 101/59 07/20/17 08:26 48 7 100 07/20/17 08:26 48 7 07/20/17 08:25 101/61 07/20/17 08:21 53 15 07/20/17 08:21 52 15 99 07/20/17 08:20 100/53 07/20/17 08:16 54 18 07/20/17 08:16 56 18 100 07/20/17 08:15 102/63 07/20/17 08:13 62 3 07/20/17 08:13 61 3 99 07/20/17 08:10 104/60 07/20/17 08:08 60 6 07/20/17 08:08 62 6 99 07/20/17 08:06 112/48 07/20/17 08:04 116/65 07/20/17 08:03 56 07/20/17 08:03 56 99 07/20/17 08:03 36.3 56 12 116/65 99 Diffusion Mask 6 07/20/17 06:31 36.7 62 16 124/81 (95) 100 Room Air Notes Mental Status: alert / awake / arousable, participated in evaluation Pt Amnestic to Procedure: Yes Nausea / Vomiting: adequately controlled Pain: adequately controlled Airway Patency, RR, SpO2: stable & adequate BP & HR: stable & adequate Hydration State: stable & adequate Anesthetic Complications: no major complications apparent
== END | disposition home or self-care (01) ==
LOC: X.SURG 06:16
PROVIDERS: ATTEND Obstetrics & Gynecology
DX: Z30.2 Encounter for sterilization (principal)